=== PATIENT | female | born 1945 | race Caucasian/White ===

== ENCOUNTER → 2016-06-24 | Outpatient (CLI) | payer MEDICARE, OTHER | LOC: RAD 14:52 | PROVIDERS: ATTEND Family Medicine | DX: R10.32 Left lower quadrant pain (principal) | CPT/HCPCS: 74176 ==

== ENCOUNTER → 2016-12-03 | Outpatient (CLI) | payer MEDICARE, OTHER ==
--- NOTE | 2016-12-03 11:42 | WOMENS IMAGING REPORT ---
EXAM DESCRIPTION: BILAT SCREENING MAMMO W/CAD COMPLETED DATE/TIME: 12/03/2016 11:12 am REASON FOR STUDY: SCREENING MAMMO Z12.31 ENCNTR SCREEN MAMMOGRAM FOR MALIGNANT NEOPLASM OF NELLY COMPARISON: Multiple since 2008 TECHNIQUE: Standard craniocaudal and mediolateral oblique views of each breast recorded using digita l acquisition. LIMITATIONS: None. FINDINGS: Findings present which are benign by mammographic criteria. No suspicious masses, calcifi cations or architectural distortion. Pertinent benign findings: Stable bilateral vascular calcifications, breast parenchymal calcification s, and small nodules. Read with the assistance of CAD. .[facility] - R2 Cenova Version 1.3 .[facility] - R2 Cenova Version 1.3 .[facility] - R2 Cenova Version 2.4 .[facility] [place] - R2 Cenova Version 2.4 .[facility] - R2 Gold And Silver Assayer Version 9.2 Benign mammographic findings may include one or more of the following: Smooth masses, popcorn/rim/co arse calcifications, asymmetries, post-procedure changes, and lesions with long-standing stability. IMPRESSION: BENIGN MAMMOGRAPHIC FINDINGS. BIRADS 2 BREAST DENSITY: b. There are scattered areas of fibroglandular density. BIRAD: 2 BENIGN FINDING(S) RECOMMENDATION: ROUTINE SCREENING Please continue yearly bilateral screening. Consider tomosynthesis in November 2017 COMMENT: The patient has been notified of the results by letter per SA requirements. Additional no tification policies are in place for contacting patient with suspicious or incomplete findings. Quality ID #[id number]: The [employer] recommends an annual screening mammogram for women aged 40 years or over. This facility utilizes a reminder system to ensure that all patients receive reminder letters, and/or direct phone calls for appointments. This includes reminders for routine scr eening mammograms, diagnostic mammograms, or other Breast Imaging Interventions when appropriate. Th is patient will be placed in the appropriate reminder system. The [employer] (ACR) has developed recommendations for screening MRI of the breast s in certain patient populations, to be used in conjunction with mammography. Breast MRI surveillanc e may be appropriate for women with more than 20% lifetime risk of developing breast cancer as deter mined by genetic testing, significant family history of the disease, or history of mantle radiation f or Hodgkins Disease. ACR Practice Guidelines 2008. TECHNICAL DOCUMENTATION: FINDING NUMBER: (1) ASSESSMENT: (1) JOB ID: [id number] [employer]- All Rights Reserved
== END ==
LOC: WI 10:33
PROVIDERS: ATTEND Family Medicine
DX: Z12.31 Encounter for screening mammogram for malignant neoplasm of breast (principal)
CPT/HCPCS: 77067; G0202

== ENCOUNTER → 2017-12-07 | Outpatient (CLI) | payer MEDICARE, OTHER ==
--- NOTE | 2017-12-07 10:45 | WOMENS IMAGING REPORT ---
EXAM DESCRIPTION: BONE DENSITY HIP/SPINE COMPLETED DATE/TIME: 12/07/2017 10:06 am REASON FOR STUDY: BONE DENSITY M81.0 Z12.31 ENCNTR SCREEN MAMMOGRAM FOR MALIGNANT NEOPLASM OF NELLY M 81.0 AGE-RELATED OSTEOPOROSIS W/O CURRENT PATHOLOGICAL FRAC COMPARISON: 11/30/2014. TECHNIQUE: Dual-Energy X-ray Absorptiometry (DEXA) of the AP Spine and Hip. LIMITATIONS: None. FINDINGS: LUMBAR SPINE: The bone mineral density (BMD) measured from L1-L4 in the AP projection correlates with a T-score of -0.8, which is normal as defined by the World Health Organization. HIP: The bone mineral density (BMD) measured in the left hip correlates with a T-score of -1.7, which is o steopenia as defined by the World Health Organization. IMPRESSION: 1. LUMBAR SPINE: NORMAL. 2. HIP: OSTEOPENIA. COMMENT: The World Health Organization defines low BMD as follows: T-score: Normal: Greater than -1.0 Osteopenia: Between -1.0 and -2.5 Osteoporosis: Less than -2.5 without fractures Established osteoporosis: Less than -2.5 with fractures In general, you may wish to consider: Diagnosis Treatment Follow-up DEXA Normal BMD Prevention 2-3 years Osteopenia Prevention/Therapy 1-2 years Osteoporosis Therapy Yearly TECHNICAL DOCUMENTATION: JOB ID: [id number] All Rights Reserved Reading location - IP/workstation name: [email or web address]
--- NOTE | 2017-12-07 11:33 | WOMENS IMAGING REPORT ---
EXAM DESCRIPTION: 3D SCREENING MAMMO BILAT COMPLETED DATE/TIME: 12/07/2017 10:06 am REASON FOR STUDY: BILATERAL SCREENING MAMMO 3D/Z12.31 Z12.31 ENCNTR SCREEN MAMMOGRAM FOR MALIGNANT NEOPLASM OF NELLY M81.0 AGE-RELATED OSTEOPOROSIS W/O CURRENT PATHOLOGICAL FRAC COMPARISON: [id number] TECHNIQUE: Standard craniocaudal and mediolateral oblique views of each breast recorded using digita l acquisition and breast tomosynthesis. LIMITATIONS: None. FINDINGS: No masses, calcifications or architectural distortion. No areas of suspicion. Read with the assistance of CAD. .[facility] - R2 Cenova Version 1.3 .[facility] Imaging - R2 Cenova Version 1.3 .[facility] Imaging - R2 Cenova Version 2.4 .[facility] [place] - R2 Cenova Version 2.4 .[facility] - R2 Service Dismantler Version 9.2 IMPRESSION: NORMAL MAMMOGRAM. BIRADS 1. BREAST DENSITY: b. There are scattered areas of fibroglandular density. BIRAD: 1 NEGATIVE RECOMMENDATION: ROUTINE SCREENING COMMENT: The patient has been notified of the results by letter per SA requirements. Additional no tification policies are in place for contacting patient with suspicious or incomplete findings. Quality ID #[id number]: The [employer] recommends an annual screening mammogram for women aged 40 years or over. This facility utilizes a reminder system to ensure that all patients receive reminder letters, and/or direct phone calls for appointments. This includes reminders for routine scr eening mammograms, diagnostic mammograms, or other Breast Imaging Interventions when appropriate. Th is patient will be placed in the appropriate reminder system. The [employer] (ACR) has developed recommendations for screening MRI of the breast s in certain patient populations, to be used in conjunction with mammography. Breast MRI surveillanc e may be appropriate for women with more than 20% lifetime risk of developing breast cancer as deter mined by genetic testing, significant family history of the disease, or history of mantle radiation f or Hodgkins Disease. ACR Practice Guidelines 2008. DBT Technology DBT is a type of tomographic mammography. With conventional mammography, overlapping breast tissue ma y make lesions difficult to detect, even with good compression. DBT uses an x-ray tube that rotates a round the breast, taking images at different angles. These images are then combined to create thin sl ices of the breast that the radiologist can view as a 3D reconstruction. The ClarityAd unit can perform full-field digital mammograms (2D imaging); or DBT (3D imaging); or both, in a combination mode that quickly performs both the mammogram and the tomosynthesis scan while the breast is still compressed. PQRS 6045F: Fluoroscopic imaging is not utilized for breast tomosynthesis. TECHNICAL DOCUMENTATION: FINDING NUMBER: (1) ASSESSMENT: (1) JOB ID: [id number] [employer]- All Rights Reserved Reading location - IP/workstation name: [email or web address]-2
== END ==
LOC: WI 09:29
PROVIDERS: ATTEND Family Medicine
DX: Z12.31 Encounter for screening mammogram for malignant neoplasm of breast (principal); M18.11 Unilateral primary osteoarthritis of first carpometacarpal joint, right hand; M85.88 Other specified disorders of bone density and structure, other site
CPT/HCPCS: 77063; 77067; 77080

== ENCOUNTER → 2018-12-13 | Outpatient (CLI) | payer MEDICARE, OTHER ==
--- NOTE | 2018-12-13 16:21 | WOMENS IMAGING REPORT ---
EXAM DESCRIPTION: 3D SCREENING MAMMO BILAT COMPLETED DATE/TIME: 12/13/2018 1:23 pm REASON FOR STUDY: ROUTINE BILATERAL SCREENING;Z12.31 Z12.31 ENCNTR SCREEN MAMMOGRAM FOR MALIGNANT N EOPLASM OF NELLY COMPARISON: 2013 to 2017 EXAM PARAMETERS: Standard craniocaudal and mediolateral oblique views of each breast recorded using digital acquisition and breast tomosynthesis. Read with the assistance of CAD. .[facility] - Smart [employer] Accounting Technician Version 9.2 LIMITATIONS: None. FINDINGS: RIGHT BREAST MASSES: No suspicious masses. CALCIFICATIONS: No new or suspicious calcifications. ARCHITECTURAL DISTORTION: None. DEVELOPING DENSITY: None. ASYMMETRY: None noted. OTHER: No other significant findings. LEFT BREAST MASSES: 4 mm oval mass 12 o'clock 7 cm from the nipple CALCIFICATIONS: No new or suspicious calcifications. ARCHITECTURAL DISTORTION: None. DEVELOPING DENSITY: None. ASYMMETRY: None noted. OTHER: No other significant findings. IMPRESSION: Mass in the left breast 0 Incomplete: Needs Additional Imaging Evaluation and/or prior Mammograms for Comparison. BREAST DENSITY: b. There are scattered areas of fibroglandular density. BIRAD: ASSESSMENT: 0 Incomplete: Needs Additional Imaging Evaluation and/or prior Mammograms for C omparison. RECOMMENDATION: RECOMMENDED FOLLOW-UP: Ultrasound. The patient will be contacted for additional imaging. COMMENT: The patient has been notified of the results by letter per SA requirements. Additional no tification policies are in place for contacting patient with suspicious or incomplete findings. Quality ID #[id number]: The [employer] recommends an annual screening mammogram for women aged 40 years or over. This facility utilizes a reminder system to ensure that all patients receive reminder letters, and/or direct phone calls for appointments. This includes reminders for routine scr eening mammograms, diagnostic mammograms, or other Breast Imaging Interventions when appropriate. Th is patient will be placed in the appropriate reminder system. TECHNICAL DOCUMENTATION: FINDING NUMBER: (1) ASSESSMENT: (1) JOB ID: [id number] [employer]- All Rights Reserved Reading location - IP/workstation name: [email or web address]
== END ==
LOC: WI 12:59
PROVIDERS: ATTEND Family Medicine
DX: Z12.31 Encounter for screening mammogram for malignant neoplasm of breast (principal)
CPT/HCPCS: 77063; 77067

== ENCOUNTER → 2018-12-22 | Outpatient (CLI) | payer MEDICARE, OTHER ==
--- NOTE | 2018-12-22 14:12 | WOMENS IMAGING REPORT ---
EXAM DESCRIPTION: LEFT DIAGNOSTIC MAMMO W/CAD; U/S BREAST UNILAT LIMITED COMPLETED DATE/TIME: 12/22/2018 12:47 pm; 12/22/2018 1:21 pm REASON FOR STUDY: R92.2 INCONCLUSIVE MAMMO; LT BREAST R92.2 R92.2 INCONCLUSIVE MAMMOGRAM COMPARISON: 12/13/2018 and 04/07/2017 EXAM PARAMETERS: True lateral view and cone compression views of the left breast. LIMITATIONS: None. FINDINGS: BREAST LATERALITY: Left MASSES: Persistent new 7 mm mass at 1 to 2 o'clock 6 cm from the nipple. CALCIFICATIONS: No new or suspicious calcifications. ARCHITECTURAL DISTORTION: None. ASYMMETRY: None noted. OTHER: No other significant findings. BREAST ULTRASOUND: TECHNIQUE: Static and dynamic grayscale images acquired of the left breast in the specific areas of c linical/mammographic concern. Selected color Doppler images recorded. ELASTOGRAPHY PERFORMED: No. LIMITATIONS: None. FINDINGS: MASS: At 1 to 2 o'clock, corresponding to the mammographic abnormality there is a 7 mm hypoechoic nod ule which contains internal echoes but does have some through transmission. Is unclear if this repre sents small complex cyst or solid mass. Ultrasound-guided aspiration/biopsy is recommended for furth er evaluation. An additional 3 mm hypoechoic nodule was seen at 12 o'clock more suggestive of a smal l cyst. ELASTOGRAPHY CHARACTERISTICS: Not applicable. OTHER: No other significant finding. IMPRESSION: 1. 7 mm hypoechoic nodule at 1 to 2 o'clock with differential including complex cyst an d solid mass. Ultrasound-guided aspiration/biopsy is recommended. BREAST DENSITY: b. There are scattered areas of fibroglandular density. BIRAD: ASSESSMENT: 4A-Suspicious abnormality: Needing intervention but with a low suspicion for mal ignancy. Biopsy should be performed in the absence of clinical contra-indication. RECOMMENDATION: RECOMMENDED FOLLOW UP: Birads 4: Biopsy should be performed in the absence of clinic al contraindication. SPECIFIC INTERVENTION/IMAGING/CONSULTATION RECOMMENDED:Ultrasound-guided aspiration/biopsy. COMMUNICATION:The imaging findings were not discussed with the patient. Her referring provider has be en notified of the findings. COMMENT: The patient has been notified of the results by letter per MQSA requirements. Additional no tification policies are in place for contacting patient with suspicious or incomplete findings. Quality ID #[id number]: The [employer] recommends an annual screening mammogram for women aged 40 years or over. This facility utilizes a reminder system to ensure that all patients receive reminder letters, and/or direct phone calls for appointments. This includes reminders for routine scr eening mammograms, diagnostic mammograms, or other Breast Imaging Interventions when appropriate. Th is patient will be placed in the appropriate reminder system. TECHNICAL DOCUMENTATION: FINDING NUMBER: (1) ASSESSMENT: (1) JOB ID: [id number] [employer]- All Rights Reserved Reading location - IP/workstation name: [email or web address]
== END ==
LOC: WI 12:27
PROVIDERS: ATTEND Family Medicine
DX: R92.2 Inconclusive mammogram (principal)
CPT/HCPCS: 76642; 77065

== ENCOUNTER → 2018-12-30 | Day surgery (SDC) | payer MEDICARE, OTHER ==
[~2018-12-30] MED LIST: LIDOCAINE 2% INJ (20 MG/ML) 20 ML MDV ONE
--- NOTE | 2019-01-03 09:31 | WOMENS IMAGING REPORT ---
EXAM DESCRIPTION: U/S BREAST BX; LEFT DIAGNOSTIC MAMMO W/CAD COMPLETED DATE/TIME: 01/03/2019 9:02 am REASON FOR STUDY: N63.20 UNSPECIFIED LUMP IN THE LEFT BREAST, UNSPECIFIED QUADRANT; N63.20 S/P US LE FT BREAST BX FOR CLIP PLACEMENT N63.20 UNSPECIFIED LUMP IN THE LEFT BREAST, UNSPECIFIED QUAD COMPARISON: Multiple previous mammograms and ultrasound exams TECHNIQUE: The procedure was discussed with the patient and the patient agreed to proceed. The patient was scanned and the area of interest in the 1 to 2 o'clock position 6 cm from the nipple of the left breast was localized. This correlates with the area of concern on prior imaging studies. This area was targeted for ultrasound-guided core biopsy. After sterile skin prep and 3 mL local lidocaine 1 % skin and deep tissue anesthesia, a 14 gauge coax ial core biopsy needle was used to obtain several cores of tissue from the lesion. Under ultrasound guidance, a ribbon clip was placed in the areas sampled. There were no immediate post-procedure comp lications. MAMMOGRAM: Post-procedure two view mammogram was acquired in the digital mammogram suite. The clip wa s in the expected location. No significant hematoma. Pathology yields a diagnosis of fibrocystic changes and micro glandular adenosis. Negative for malig tresa. Pathology is concordant. LIMITATIONS: None. FINDINGS: Ultrasound guided breast biopsy as described above. POST PROCEDURE MAMMOGRAMS FOR MARKER PLACEMENT: Yes IMPRESSION: ULTRASOUND-GUIDED CORE BIOPSY OF THE LEFT BREAST YIELDS A DIAGNOSIS OF BENIGN FIBROCYSTI C CHANGES. NO ATYPIA OR MALIGNANCY. BI-RADS 2, BENIGN FINDINGS PLEASE RESUME YEARLY BILATERAL SCREENING MAMMOGRAPHY/TOMOSYNTHESIS IN DECEMBER 2019 COMMENT: BI-RADS 2, BENIGN FINDINGS COMMUNICATION: Patient notified 0930 hours 01/03/2019. She understands this is a benign diagnosis, a nd that she should return to yearly bilateral screening mammography/ tomosynthesis in December 2019 Patient medication list reviewed: Yes- Quality ID# [id number]:Eligible professional attests to documenting i n the medical record they obtained, updated, or reviewed the patient's current medications. TECHNICAL DOCUMENTATION: JOB ID: [id number] [employer]- All Rights Reserved Reading location - IP/workstation name: [email or web address]
== END ==
LOC: RAD 10:35
PROVIDERS: ATTEND Family Medicine
DX: N60.12 Diffuse cystic mastopathy of left breast (principal)
CPT/HCPCS: 88342 ×2; 88341 ×2; 88305 ×2; 19083; 77065; J3490

== ENCOUNTER → 2019-12-28 | Outpatient (CLI) | payer MEDICARE, OTHER ==
--- NOTE | 2019-12-28 13:44 | WOMENS IMAGING REPORT ---
EXAM DESCRIPTION: 3D SCREENING MAMMO BILAT IMAGES COMPLETED DATE/TIME: 12/28/2019 1:16 pm REASON FOR STUDY: ROUTINE SCREENING MAMMOGRAM Z12.31 Z12.31 ENCNTR SCREEN MAMMOGRAM FOR MALIGNANT N EOPLASM OF NELLY COMPARISON: Priors back to 2011. EXAM PARAMETERS: Views: Standard craniocaudal and mediolateral oblique views of each breast recorded using digital acquisition and breast tomosynthesis. Read with the assistance of CAD. .[facility] - [employer] Bi[employer] Researcher Version 9.2 LIMITATIONS: None. FINDINGS: No suspicious masses, suspicious calcifications or architectural distortion. No areas of c oncern. IMPRESSION: NEGATIVE MAMMOGRAM. BIRADS 1. BREAST DENSITY: b. There are scattered areas of fibroglandular density. BIRAD: ASSESSMENT: 1 NEGATIVE RECOMMENDATION: ROUTINE SCREENING COMMENT: The patient has been notified of the results by letter per MQSA requirements. Additional no tification policies are in place for contacting patient with suspicious or incomplete findings. Quality ID #[id number]: The [employer] recommends an annual screening mammogram for women aged 40 years or over. This facility utilizes a reminder system to ensure that all patients receive reminder letters, and/or direct phone calls for appointments. This includes reminders for routine scr eening mammograms, diagnostic mammograms, or other Breast Imaging Interventions when appropriate. Th is patient will be placed in the appropriate reminder system. TECHNICAL DOCUMENTATION: FINDING NUMBER: (1) ASSESSMENT: (1) JOB ID: [id number] 2010 [employer]- All Rights Reserved Reading location - IP/workstation name: [email or web address]
== END ==
LOC: WI 15:46
PROVIDERS: ATTEND Family Medicine
DX: Z12.31 Encounter for screening mammogram for malignant neoplasm of breast (principal)
CPT/HCPCS: 77063; 77067

== ENCOUNTER 2020-01-23 15:44 | Emergency (ER) | payer MEDICARE, OTHER ==
[2020-01-23 16:11] VITALS: BP 140/82
--- NOTE | 2020-01-23 16:18 | ER Document Report ---
ED Oral Problem - General Chief Complaint: Jaw Pain Stated Complaint: JAW PAIN Time Seen by Provider: 01/23/20 16:12 Primary Care Provider: EDER REID MD [Primary Care Provider] - Follow up as needed Notes: CHIEF COMPLAINT: Left jaw pain for 2 days HPI: 74-year-old female presenting with left jaw pain when she opens or closes the mouth only, occasionally when she pushes on the left region Over the last 2 days. No vision changes no significant headache no chest pain no shortness of breath no abdominal pain no nausea vomiting diarrhea no fever. Patient states that she thought it might be an ear issue. Patient states that the discomfort is specifically worse when she chews or opens or closes the mouth but she denies dental pain. She went to an urgent care and they referred her into the emergency department. Patient denies slurred speech. She denies facial droop. She denies weakness numbness or tingling in the extremities. She denies dizziness. She has taken no medications for the symptoms. ROS: See HPI - all other systems were reviewed and are otherwise negative Constitutional: no fever Eyes: no drainage, no blurred vision ENT: no runny nose, no sore throat, positive jaw pain Cardiovascular: no chest pain Resp: no SOB, no cough GI: no vomiting, no diarrhea, no abdominal pain : no dysuria Integumentary: no rash Allergy: no hives Musculoskeletal: no extremity pain or swelling Neurological: no numbness/tingling, no weakness MEDICATIONS: I agree with the patient medications as charted by the RN. ALLERGIES: I agree with the allergies as charted by the RN. PAST MEDICAL HISTORY/PAST SURGICAL HISTORY: Reviewed and agree as charted by RN. SOCIAL HISTORY: Reviewed and agree as charted by RN. FAMILY HISTORY: No significant familial comorbid conditions directly related to patient complaint EXAM: Reviewed vital signs as charted by RN. CONSTITUTIONAL: Alert and oriented and responds appropriately to questions. Well-appearing; well-nourished HEAD: Normocephalic; atraumatic EYES: PERRL; Conjunctivae clear, sclerae non-icteric ENT: normal nose; no rhinorrhea; moist mucous membranes; pharynx without lesions noted, no uvula edema or deviation, no tonsillar hypertrophy, phonation normal. No trismus. No significant dental caries. Patient has tenderness in the left TMJ region with palpation in the left preauricular area as well as with opening and closing of the mouth but there is no subluxation palpable NECK: Supple without meningismus; non-tender; no cervical lymphadenopathy, no masses. No bruit CARD: RRR; no murmurs, no clicks, no rubs, no gallops; symmetric distal pulses RESP: Normal chest excursion without splinting or tachypnea; breath sounds clear and equal bilaterally; no wheezes, no rhonchi, no rales, pulse oximetry 98% on room air not hypoxic ABD/GI: Normal bowel sounds; non-distended; soft, non-tender, no rebound, no guarding; no palpable organomegaly or masses. BACK: The back appears normal and is non-tender to palpation, there is no CVA tenderness EXT: Normal ROM in all joints; non-tender to palpation; no cyanosis, no effusions, no edema SKIN: Normal color for age and race; warm; dry; good turgor; no acute lesions noted NEURO: Moves all extremities equally; Motor and sensory function intact. Patient gait is normal. Patient speech is normal. There is no facial droop. There is no sensory loss in the face, upper or lower extremities. Strength is equal 5/5 bilateral upper and lower extremities. PSYCH: The patient's mood and manner are appropriate. Grooming and personal hygiene are appropriate. MDM: 74-year-old female with left mandibular discomfort in the TMJ preauricular region. She has absolutely no signs of stroke. She has absolutely no signs of ACS. Her pain is reproducible with palpation and opening and closing of the jaw. We will place her on a short course of an anti-inflammatory and refer to ENT follow-up. Patient was given specific signs and symptoms to return for but I have very low suspicion for CVA or ACS. Patient is in complete agreement with this plan as she does not believe she is having a stroke or a heart attack TRAVEL OUTSIDE OF THE [place] IN LAST 30 DAYS: No - Related Data Allergies/Adverse Reactions: No Known Allergies Allergy (Unverified 12/23/14 18:58) Past Medical History - Social History Smoking Status: Unknown if Ever Smoked Family History: Reviewed & Not Pertinent - Past Medical History Cardiac Medical History: Reports: Hx Hypercholesterolemia, Hx Hypertension Renal/ Medical History: Reports: Hx Kidney Stones Past Surgical History: Reports: Hx Cholecystectomy, Hx Hysterectomy, Hx Tonsillectomy Physical Exam - Vital signs Vitals: Temp Pulse Resp BP Pulse Ox 98.2 F 65 20 140/82 H 94 01/23/20 16:10 01/23/20 16:10 01/23/20 16:10 01/23/20 16:10 01/23/20 16:10 Course - Vital Signs Vital signs: Temp Pulse Resp BP Pulse Ox 98.2 F 65 20 140/82 H 94 01/23/20 16:10 01/23/20 16:10 01/23/20 16:10 01/23/20 16:10 01/23/20 16:10 Discharge - Discharge Clinical Impression: Pain in lower jaw Condition: Stable Disposition: HOME, SELF-CARE Additional Instructions: Take the Mobic for jaw pain. Follow-up with ENT for further evaluation and treatment call for appointment. If you develop any weakness numbness or tingling in the face or extremities, any slurred speech or onset of chest pain return for reevaluation Prescriptions: Meloxicam [Mobic] 7.5 mg PO DAILY #10 tablet Referrals: EDER REID MD [Primary Care Provider] - Follow up as needed PRAMOD KENNEDY DO [ASSOCIATE] - Follow up as needed
== END 2020-01-23 16:38 | disposition home or self-care (01) ==
LOC: ER 15:44
DX: R68.84 Jaw pain (principal); E78.00 Pure hypercholesterolemia, unspecified; I10 Essential (primary) hypertension; Z90.49 Acquired absence of other specified parts of digestive tract; Z90.710 Acquired absence of both cervix and uterus
CPT/HCPCS: 99283